=== PATIENT | male | born 1975 | race Caucasian/White ===

== ENCOUNTER 2023-12-01 07:45 | Day surgery (SDC) | payer OTHER ==
[2023-11-23 16:12] VITALS: BP 148/77
[~2023-12-01] VITALS: Ht 195.6 cm; Wt 175.4 kg
[~2023-12-01 07:45] MED LIST: IBLOOD GLUCOSE TEST STRIP 1 EA TEST VI PRN; LACTATED RINGER'S 1,000 ML IV SCH; LIDOCAINE HCL 1% 5 ML SDV INJ ONE; MIDAZOLAM HCL 5 MG/5 ML VIAL IV PRN; fentaNYL citrate 100 MCG/2 ML VIAL IV PRN
[2023-12-01 08:01] VITALS: BP 154/64
[2023-12-01] MEDS ORDERED: propofoL 200 MG/20 ML VIAL ONE (08:48)
[2023-12-01] MEDS ORDERED: LACTATED RINGER'S 1,000 ML IV ONE (10:02)
--- NOTE | 2023-12-01 10:15 | NUR ---
12/01/23 1015 Nataliia Connell 1007-PT TO PACU IN LL POSITION. EYES CLOSED. DOES NOT RESPOND TO VERBAL OR TACTILE STIMULI. BREATHING EASY AND UNLAOBRED. SPO2 >95% ON 10 L O2 VIA SIMPLE MASK. ORAL AIRWAY IN PLACE 1013-PT CONTINUES TO SLEEP IN LL POSITION WITH ORAL AIRWAY IN PLACE. BREATHING EASY AND UNLABORED. SPO2 >95%. O2 TITRATED DOWN TO 6 LPM VIA SIMPLE.
[2023-12-01 10:48] VITALS: BP 117/64
--- NOTE | 2023-12-01 11:21 | OR ---
[facility] [address], [place] [address] Signed DATE OF OPERATION: 12/01/2023 SURGEON: Svetlana Castaneda MD PREOPERATIVE DIAGNOSIS: Screening colonoscopy. POSTOPERATIVE DIAGNOSES: 1. Minimal sigmoid diverticulosis. 2. Minimal internal hemorrhoids. PROCEDURE: Colonoscopy without biopsy. ESTIMATED BLOOD LOSS: None. INDICATIONS: Alaina is a 48-year-old obese gentleman, asked to see me for his initial screening colonoscopy. He talked about some blood in his stool when he was in his 30s. He had a colonoscopy with Dr. Estes at that time which was said to be normal per the patient. He has no lower GI complaints currently. He has no family history of colon cancer or polyps. In the office, I gave Alaina a pamphlet on colonoscopy. He understands the nature of the test. There is risk including, but not limited to gas bloating, crampy abdominal pain, bleeding, perforation requiring surgery, and missed diagnosis. We also reviewed the written instructions for the bowel prep line by line. He takes no medications. Also because of his sheer size with a body mass index of 51, we asked for monitored anesthesia care with propofol infusion. That proved to be a burns decision as he does have sleep apnea most likely. He understands that an adult person has to take him home afterwards. He had expressed understanding and wished to proceed. DESCRIPTION OF PROCEDURE: Alaina was taken into our endoscopy suite and placed in the left lateral decubitus position. He was given monitored anesthesia care with propofol infusion per our nurse extension associate. He also required an oral airway. A digital rectal exam was performed and he had no external hemorrhoids. He had good sphincter tone. There were no masses. He is a very large man and I could not reach the prostate. The adult colonoscope had been introduced and advanced all around into the cecum under direct visualization of the camera without difficulty. His prep was quite excellent. We could easily see the appendiceal orifice and the ileocecal valve. The scope was slowly withdrawn. We saw no Electronically Signed By: SVETLANA CASTANEDA MD 12/01/23 1121 PATIENT NAME: ALAINA BHAT OPERATIVE REPORT DATE OF : 71 REPORT #: [id number] PHYSICIAN: SVETLANA CASTANEDA MD PCP: NA GARCIA PAC REPORT IS CONFIDENTIAL AND NOT TO BE RELEASED WITHOUT AUTHORIZATION [facility] [address] [place] [id number] Signed polyps throughout the entire colon or rectum. He had a few diverticula in the sigmoid colon. They are minimal to moderate in size, few in number and scattered about. The scope was retroflexed in the rectum and he has very minimal internal hemorrhoid tissue. After this, the gas was suctioned out and the colonoscope removed. Alaina tolerated the procedure quite well. RECOMMENDATIONS: Alaina can return in 10 years for repeat screening colonoscopy. Svetlana aCstaneda MD ALB/MODL /[id number] cc: JOSE Adames MD Copies: SVETLANA CASTANEDA MD ~ Electronically Signed By: SVETLANA CASTANEDA MD 12/01/23 1121 PATIENT NAME: ALAINA BHAT OPERATIVE REPORT DATE OF : 71 REPORT #: [id number] PHYSICIAN: SVETLANA CASTANEDA MD PCP: NA GARCIA PAC REPORT IS CONFIDENTIAL AND NOT TO BE RELEASED WITHOUT AUTHORIZATION
== END 2023-12-01 10:50 | disposition home or self-care (01) ==
LOC: DS 07:45
PROVIDERS: ATTEND Colon & Rectal Surgery
PROC: 0DJD8ZZ Inspection of Lower Intestinal Tract, Via Natural or Artificial Opening Endoscopic (ICD-10-PCS; principal; 2023-12-01 09:00)
DX: Z12.11 Encounter for screening for malignant neoplasm of colon (principal); K64.8 Other hemorrhoids; K57.30 Diverticulosis of large intestine without perforation or abscess without bleeding; R06.83 Snoring; E66.9 Obesity, unspecified; Z68.43 Body mass index [BMI] 50.0-59.9, adult
CPT/HCPCS: G0121; J2704; J7121